=== PATIENT | male | born 1955 | race Caucasian/White ===

== ENCOUNTER 2016-12-18 13:15 | Emergency (ER) | payer OTHER, BC ==
[~2016-12-18] VITALS: Ht 172.7 cm; Wt 92.8 kg
[~2016-12-18 13:15] MED LIST: ALBU8.5H INH; ATOR20TA PO; BENA10TA3 PO; CETI10TA56 PO; FLUO15CR4 TOP; IBUP-1724 PO; MULT-933 PO
[2016-12-18 13:17] VITALS: Ht 172.7 cm; Wt 92.8 kg
--- OUTSIDE RECORDS SUMMARY | 2016-12-18 13:18 | XMS REPORT | Continuity of Care Document ---
Author Author [facility] Organization [facility] Address Unknown Phone Unavailable Support Name Relationship Address Phone TEODORO JIMENEZ MD Caregiver [address] [place] [address] Unavailable SAILAJA FUENTES Caregiver [address] [place] [address] Unavailable MILI CASTELLANO Next Of Kin Unknown [phone] Insurance Providers Guarantor Cecilio Castellano Address [address] [place] [address] Email NO TO PT [facility] Policy Number [id number] Subscriber's Name Cecilio Castellano Relationship 18 Self Group Number [id number] Effective Date 05 Advance Directives Directive Response Recorded Date/Time Ordered Resuscitation Status Full Code 08/23/16 1:32pm Resuscitation Documents on File No 08/26/16 6:35am DPOA for Healthcare Only No 08/26/16 6:35am Living Will No 08/26/16 6:35am Problems Active Problems Medical Problem Onset Date Status Kidney stone on left side Unknown Acute Medications Current Home Medications Medication Dose Units Route Directions Days Qty Instructions Start Date Albuterol Sulfate (Proair Hfa 90 Mcg/Actuation) 8.5 Gm Hfa.aer.ad 2 Puff Inhalation Every 6 Hours as needed for Shortness Of Air/Wheezing Atorvastatin Calcium (Lipitor) 20 Mg Tablet 1 Tab Oral Bedtime Benazepril Hcl 10 Mg Tablet 1 Tab Oral Daily 08/23/16 Cetirizine Hcl (Zyrtec) 10 Mg Tablet 10 Mg Oral Daily 03/01/12 Fluocinolone Acetonide 15 Applic/15 G Cr 1 Applic Topically Twice A Day 08/23/16 Ibuprofen 200 Mg Tablet 2 Tab Oral Every 4 Hours as needed for Pain 08/26/16 Multivitamin (Multi-Day Vitamins) 1 Each Tablet 1 Tab Oral Daily 30 Tablet 08/23/16 Social History Social History Problem Response Recorded Date/Time Onset Date Status Reason for Hospitalization COLONOSCOPY 08/26/2016 8:13am Not Applicable Not Applicable Chewing Tobacco Status No 08/26/2016 6:40am Not Applicable Not Applicable Hx Substance Use Y MARIJUANA, 08/26/2016 6:40am Not Applicable Not Applicable Hx Alcohol Use No 08/26/2016 6:40am Not Applicable Not Applicable Has the pt used tobacco in the last 12 months No 08/26/2016 6:40am Not Applicable Not Applicable Tobacco Usage none 06/05/2015 7:58am Not Applicable Not Applicable Query Response Start Date Stop Date Smoking Status Former smoker Hospital Discharge Instructions Instructions: Care Instructions: I was in the hospital because (patient own words): COLONOSCOPY Discharge Diet: You may resume your usual diet. Discharge Activity: You may resume your usual activity. Follow Up Appointments: No specific follow-up appointment with Dr. Jimenez is necessary. You can call his office for any questions or concerns. Pending Lab / Results: No Pending Lab Patient Instructions: Do not drive, operate machinery, drink alcohol, or sign important papers for 24 hours. Expected Signs/Symptoms: You may have some gas discomfort. Notify Physician If: Contact if you have a fever over 101 degrees, severe abdominal pain, or severe rectal bleeding. During Business Hours:: During office hours, call Dr. Jimenez's office at [phone]. After Business Hours:: Please call the hospital at [phone] and have the punch press operator helper page or the covering physician. Pain Management/Treatment: You should not have significant pain following the procedure. Wound/Incision Care: No wound care required. Condition at time of discharge: Good Plan of Care Discharge Date 08/26/16 8:35am Instructions/Education Provided [facility] Prescriptions See Medication Section Functional Status Query Response Date Recorded Ability to complete ADL's impeded by No change August 26, 2016 6:35am Allergies, Adverse Reactions, Alerts Allergen Type Severity Reaction Status Last Updated Sulfa (Sulfonamide Antibiotics) Allergy Unknown RASH Active 08/26/16 Immunizations Query Response on File Recorded Date/Time Hx Influenza Vaccination No 08/26/16 6:40am Hx Pneumococcal Vaccination No 08/26/16 6:40am Hx Influenza Vaccination No 08/26/16 6:40am Vital Signs Acute Vital Signs Vital Response Date/Time Temperature (Fahrenheit) 97.0 deg F (96.8 - 99.1) 08/26/2016 8:00am Temperature (Calculated Celsius) 36.96750 degrees C (36.0 - 37.3) 08/26/2016 8:00am Temperature Source Temporal 08/26/2016 8:00am Pulse Rate (adult) 62 bpm (60 - 100) 08/26/2016 8:30am Respiratory Rate 20 breaths/min (10 - 20) 08/26/2016 8:30am O2 Sat by Pulse Oximetry 96 % (90 - 100) 08/26/2016 8:30am Oxygen Delivery Method Room Air 08/26/2016 8:30am Oxygen Flow Rate 5.00 L/min 08/26/2016 8:00am Blood Pressure 115/60 mm Hg 08/26/2016 8:30am Blood Pressure Source Automatic Cuff 08/26/2016 8:30am Height (Feet) 5 feet 08/26/2016 6:20am Height (Inches) 8.00 inches 08/26/2016 6:20am Weight (Kilograms) 92.400 kg 08/26/2016 6:20am Body Mass Index (BMI) 31.0 08/26/2016 6:20am Results No known relevant diagnostic tests, laboratory data and/or discharge summary. Procedures Procedure Status Date Provider(s) Colonoscopy Completed 08/26/16 TEODORO JIMENEZ MD Encounters Encounter Location Arrival/Admit Date Discharge/Depart Date Attending Provider Registered [facility] 08/26/16 6:11am TEODORO JIMENEZ MD
--- NOTE | 2016-12-18 13:21 | NUR ---
PROVIDER Anita HILL APRN AT BEDSIDE FOR EXAM.
--- NOTE | 2016-12-18 13:28 | NUR ---
XRAY PORTABLE XRAY AT BEDSIDE.
[2016-12-18] MEDS ORDERED: HYDROMORPHONE 2mg/ml INJECTION IV ONE (13:30)
[2016-12-18] MEDS ORDERED: CEFAZOLIN 1 G in NORMAL SALINE 100 ML IV ONE (13:30)
--- NOTE | 2016-12-18 13:33 | ERPDOC ---
Departure Disposition Decision Date: Dec 18, 2016 Disposition Decision Time: 15:47 (MIKE HILL APRN) Disposition: 01 DISCHARGED HOME, SELF-CARE Impression Impression (MIKE HILL APRN) Impression: Primary Impression: Foot laceration Encounter type: initial encounter Laterality: left Qualified Codes: S91.312A - Laceration without foreign body, left foot, initial encounter Severity: Moderate (MIKE HILL APRN) Condition: Stable Seen By: Mid-level only (MIKE HILL APRN) Referrals: SAILAJA FUENTES (Family) Patient Instructions: Laceration (ED) Problems/Meds/Labs Reviewed?: Yes Medications reviewed and manag: Yes (MIKE HILL APRN) Additional Instructions: Have your sutures taken out in the next 10-14 days with your primary care provider. I do want you to ice and elevate. Please avoid prolonged standing or walking on the left foot for the next 48-72 hours. Use the [place] as needed for pain and the Keflex as prescribed for infection. Follow up with your workman's comp provider as advised or with your primary care provider. Follow up care ordered?: Yes Mental Status: Alert (MIKE HILL APRN) Scripts Hydrocodone/Acetaminophen ([place] 5-325 Tablet) 5-325 Tablet 1 TAB PO Q6H Y for PAIN, #15 TAB 0 Refills Prov: MIKE HILL APRN 12/18/16 Cephalexin (Cephalexin) 500 Mg Capsule 1 CAP PO TID, #30 CAP 0 Refills Prov: MIKE HILL APRN 12/18/16 HPI General Chief Complaint: Lower Extremity Injury Stated Complaint: LEFT FOOT INJURY Time Seen by Provider: 13:29 Source: patient Exam Limitations: no limitations (MIKE HILL APRN) Time Seen by Provider: 13:29 (HEMA RANGEL DO) HPI Foot/Ankle Initial Comments He was at work today and was in between the isles. He stepped forward to give a yasir a badge and the forklift tines impaled the left medial aspect of his foot. This did go through his boot and sock. He denies any numbness/tingling in the left foot. Bleeding is well controlled at this time. Last tdap was a year ago. 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) Allergies: Coded Allergies: Sulfa (Sulfonamide Antibiotics) (Verified Allergy, Unknown, RASH, 08/26/16 ) Past History Past Medical History Metabolic: diabetes, hypercholesterolemia, hypertension Musculoskeletal: back pain Psychological: drug abuse (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,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) Surgical History Denies Surgeries (NOLD,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) Family History Family PMH: FOUND: other (NOLD,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) Vaccines Hx Influenza Vaccination: No Hx Pneumococcal Vaccination: No (NOLD,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) Social History Smoking Status: Never smoker Does patient use chewing tobac: No Second Hand Exposure: No Substance Use Type: does not use Alcohol Intake: none (NOLD,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) Review of Systems Musculoskeletal General: pain (left medial foot) (NOLD,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) Integumentary Skin: other (left foot laceration) (NOLD,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) Neurological General: DENIES: numbness, tingling, weakness (NOLD,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) Exam General General Nourishment: well nourished, well developed, appears stated age, no acute distress, adult General Body Habitus: well groomed Vital Signs: RN Vital Signs have been reviewed: Yes Height (Feet): 5 Height (Inches): 8.00 (NOLD,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) Fastrak Foot/Ankle Foot/Ankle : Leg: Left Leg: NOT FOUND: atrophy, contusion, deformity, discoloration, edema, numbness, swelling, tender, weakness Ankle: NOT FOUND: achilles tendon insertion, anterior drawer sign, decreased ROM, deformity, ecchymosis, foot drop, numbness, swelling, tender lat. foot, tender lat. malleolus, tender med. malleolus, tender mid foot, weakness Foot: other (There is a large laceration on the left medial aspect of the foot over the instep. ), NOT FOUND: atrophy, deformity, discoloration, numbness , swelling, tender 1st MTP joint, tender plantar fascia Toes: cap refill <2 sec ea toe, other (Sensation is intact and he is able to wiggle his toes), NOT FOUND: decreased ROM, deformity, ecchymosis, erythema, nail avulsion, subungual hematoma Dorsalis Pedis Pulse: 2+ (MIKE HILL APRN) Neurologic RN Documented GCS Eye Opening: Verbal: Motor: Total: (MIKE HILL APRN) Differential Diagnoses Considering: Contusion, Retained Foreign Body, Fracture, Other (Tendon injury, arterial injury) (MIKE HILL APRN) Procedures Procedures Performed Procedures Performed: Laceration Repair (MIKE HILL APRN) Laceration/Wound Repair Wound/Laceration Repair : Wound Location: lower extremity (left medial foot) Wound Length (cm): 8 Depth, Shape: subcutaneous, flap Explored: clean Irrigated: saline (700ml) Prep: chlorasept Anesthesia: 1% Lidocaine Type of Block: local Repaired With: Sutures Suture Size: 4:0 Suture Type: prolene Number of Sutures: 17 Layer Closure?: No (MIKE HILL APRN) Progress Results/Orders Orders Procedure Category Date Status Time Foot Left 3 Views RAD 12/18/16 Resulted Hydromorphone PHA 12/18/16 Complete (Dilaudid) 13:30 Cefazolin (Kefzol) PHA 12/18/16 Complete 13:30 Lidocaine 1% PHA 12/18/16 Complete (Xylocaine 1%) 13:45 Normal Saline (Normal PHA 12/18/16 Complete Saline Iv) 15:00 (HEMA RANGEL DO) Medications Current ED Medications Hydromorphone HCl 0.5 mg 0.5 mg O ONCE IV Last administered on 12/18/16 13:37 ; Start 12/18/16 at 13:30; Stop 12/18/16 at 13:31; Status DC Cefazolin Sodium/ Sodium Chloride (Kefzol/NS) 100 ml @ 200 mls/hr O ONCE IV Last administered on 12/18/16 13:45; Start 12/18/16 at 13:30; Stop 12/18/16 at 13:59; Status DC Lidocaine HCl 100 mg 100 mg O ONCE INFIL Last administered on 12/18/16t 13:49 ; Start 12/18/16 at 13:45; Stop 12/18/16 at 13:46; Status DC Sodium Chloride (Normal Saline IV) 1,000 ml @ 1,000 mls/hr Q1H ONCE IV ; Start 12/18/16 at 15:00; Stop 12/18/16 at 15:59; Status DC (HEMA RANGEL DO) Progress Progress Xray is without fracture today. Did close the laceration in ER after wound exploration and irrigation of 700ml of sterile saline and chlorhexidine. Did discuss HPI and wound with Neno GREEN and advised to have him follow up with their office if needed but no indication for surgical washout. The wound does appear to be mostly superficial and does not appear to have any tendon injury or muscle involvement. We did given him 1 gram of Ancef in Er and will have him start on some Keflex as well. Ice and elevate. I do prefer he stay off of the wound the next 2-3 days to help with swelling and healing. Follow up with PCP in 10-14 days for sutures removal. [place] as needed for pain. (MIKE HILL APRN) Progress No fb on exam per MANAGER NEW PRODUCT. (HEMA RANGEL DO) Xray Xray : Reason for Exam: Left foot injury Xray: Foot L Interpretation: Normal (MIKE HILL APRN) MIKE HILL APRN Dec 18, 2016 13:33 HEMA RANGEL DO Dec 18, 2016 17:23
[2016-12-18] MEDS ORDERED: LIDOCAINE 1% (10mg/ml) 30ml SDV INFIL ONE (13:45)
--- NOTE | 2016-12-18 13:59 | DI ---
Indication: ITS.REASON: left foot injury, left foot gored by a fork lift on the medial side Procedure: FOOT LEFT 3 VIEWS: Encounter: Initial Comparison: None Technique: Three views of the left foot were obtained Findings: Bony mineralization is normal. The visualized osseous structures appear intact with no acute fracture identified. The joint spaces are maintained. Plantar/medial soft tissue laceration and swelling. No radiopaque foreign body. Impression: Plantar/medial soft tissue laceration and swelling with no acute osseous fracture or malalignment identified. .
--- NOTE | 2016-12-18 14:45 | NUR ---
REGULATOR ASSEMBLER PROCEDURE T. SERGIO, REGULATOR ASSEMBLER IN TO IRRIGATE WOUND.
[2016-12-18] MEDS ORDERED: NORMAL SALINE 1,000 ML IV ONE (15:00)
[2016-12-18] MEDS ORDERED: CEPH500C2 PO (15:52)
[2016-12-18] MEDS ORDERED: HYDR-4246 PO (15:52)
[2016-12-18 16:16] VITALS: BP 119/66; PULSE 79; RESP 16; TEMP 97.7; O2SAT 96
--- NOTE | 2016-12-18 16:16 | NUR ---
DISCHARGE WRITTEN INSTRUCTIONS WITH NORCO AND KEFLEX RX REVIEWED AND SENT WITH PT. PT VERBALIZES UNDERSTANDING OF DI AND MEDICATION, DENIES QUESTIONS. PT EXITS ER BY W/C PER THIS RN ACCOMP BY COWORKER AT THIS TIME.
== END 2016-12-18 16:16 | disposition home or self-care (01) ==
LOC: ED 13:15
DX: S91.312A Laceration without foreign body, left foot, initial encounter (principal); W31.83XA Contact with special construction vehicle in stationary use, initial encounter; Y93.89 Activity, other specified; Y92.9 Unspecified place or not applicable; Y99.8 Other external cause status
CPT/HCPCS: 12004; 73630; 96365; 96375; 99284; J0690; J1170; J7030; J7050